=== PATIENT | male | born 1950 ===

== ENCOUNTER → 2017-05-28 | Outpatient (CLI) | payer OTHER, BC ==
[2017-05-28 18:44] LABS: BASO % 0.5 %; BASO ABS # 0.03 K/uL (0-0.2); EOS % 2.1 %; EOS ABS # 0.13 K/uL (0-0.5); IG# 0.01 K/uL (0.00-0.02); LYMPH % 27.9 %; LYMPH ABS # 1.73 K/uL (1.2-3.4); MEAN CELL VOLUME 87.8 fL (80-100); MEAN CORPUSCULAR HEMOGLOBIN 30.6 pg (25-34); MEAN CORPUSCULAR HGB CONC 34.9 g/dl (32-36); MEAN PLATELET VOLUME 10.7 fL (7.4-10.4); MONO % 9.7 %; NEUT % 59.6 %; NEUT ABS # 3.71 K/uL (1.4-6.5); PLATELET COUNT 253 K/uL (130-400); RED CELL DISTRIBUTION WIDTH CV 13.2 % (11.5-14.5); RED CELL DISTRIBUTION WIDTH SD 42.2 fL (36.4-46.3); WHITE BLOOD COUNT 6.21 K/uL (4.8-10.8)
[2017-05-28 19:09] LABS: ALBUMIN 4.1 gm/dl (3.4-5.0); ALT/SGPT 30 U/L (12-78); AST/SGOT 21 U/L (15-37); BLOOD UREA NITROGEN 18 mg/dl (7-18); CALCIUM 8.9 mg/dl (8.5-10.1); CARBON DIOXIDE 30 mmol/L (21-32); CHOLESTEROL 201 mg/dl (0-200); CREATININE 0.69 mg/dl (0.60-1.40); GLUCOSE 79 mg/dl (70-99); SODIUM 137 mmol/L (136-145)
[2017-05-28 19:11] LABS: ALKALINE PHOSPHATASE 72 U/L (45-117); LDL CHOLESTEROL CALCULATED 67 mg/dl; TOTAL PROTEIN 7.4 gm/dl (6.4-8.2)
== END | disposition home or self-care (01) ==
LOC: C.LABSPEC 12:52
PROVIDERS: ATTEND Family Medicine
DX: Z00.00 Encounter for general adult medical examination without abnormal findings (principal); E78.2 Mixed hyperlipidemia